=== PATIENT | female | born 1980 | race Caucasian/White ===

== ENCOUNTER 2021-09-19 15:18 | Outpatient (CLI) | payer OTHER, SELFPAY ==
--- NOTE | ~2021-09-19 | MM_ITS ---
EXAMINATION: MM scrn casandra implant BI w jose HISTORY: Screening mammogram; encounter for other preprocedural examination TECHNIQUE: Craniocaudal and mediolateral oblique 3-D tomosynthesis images with implant displacement a nd synthetic 2-D images were generated. Craniocaudal and mediolateral oblique views of the breasts wi thout implant displacement were obtained using full field digital mammography. CAD analysis was submi tted and interpreted. COMPARISON: No prior mammogram is available for comparison at this institution. BREAST PARENCHYMAL COMPOSITION: There are scattered areas of fibroglandular density. FINDINGS: Bilateral ruptured collapsed implants. There is no evidence of suspicious mass, calcificati on, or architectural distortion to suggest malignancy in either breast. There has been no suspicious interval change. IMPRESSION: 1. No mammographic evidence of malignancy. 2. Recommend routine screening mammography in one year. 3. Bilateral ruptured implants BI-RADS Category 1: Negative Reviewed, dictated and finalized at location A. TH CONCIERGE
== END 2021-09-19 15:19 | disposition home or self-care (01) ==
LOC: ANHIMG 15:19
PROVIDERS: PCP Family Medicine; Visit Provider Surgery Plastic and Reconstructive Surgery
DX: Z12.31 Encounter for screening mammogram for malignant neoplasm of breast (principal)
CPT/HCPCS: 77063; 77067

== ENCOUNTER 2021-10-18 00:12 | Day surgery (SDC) | payer OTHER, SELFPAY ==
[2021-10-07 13:18] VITALS: BMI 26.6
--- NOTE | 2021-10-07 13:19 | PC.NURSE ---
Report to the Outpatient Waiting Room, entrance under the green pavilion located off [facility], at time _0830__ on date __10/18/21_. OR Time: _1030__. - You and your visitor will be asked a series of questions to screen for COVID 19 for your protection. - A mask is required within the hospital. Preoperative COVID Testing Requirements: No COVID Test needed if: (proof is required; if not received patient will have Rapid Test prior to entry) - Patient has received COVID Vaccine at least 14 days prior to procedure date or - Patient has positive COVID test result within last 90 days of surgery date. COVID Test needed if above criteria is not met If not COVID vaccinated a COVID test must be conducted within 72 hours of surgery and patient is asked to isolate self from time of testing until procedure. You will go to the [employer] [facility] for your COVID testing. The [employer] [facility] site is located at the corner of [address] [facility]. You will only be called if COVID results are positive and your surgeon may reschedule your elective surgery date. Patients may have clear liquids (water, carbonated beverages, clear teas, apple juice) until 3 hours prior to surgery with a maximum of 20 ounces. - No food from midnight until time of surgery - Infants may have breast milk until 4 hours before surgery, formula 6 hours prior to surgery. - Children will be allowed to drink immediately following surgery. If applicable, please bring a bottle or sippy cup to assist with drinking. Juice, water, soda, and popsicles are readily available. For infants on formula, please bring formula the day of surgery. Pacifiers are allowed. Take the following medications with a SIP of water the morning of surgery: LEXEPRO Medications to discontinue per physician ___NONE Date to take last dose NONE Please no make-up, nail welsh, hairspray, perfume, deodorant, or body powder the day of surgery. No jewelry (including any body piercings) or valuables the day of surgery, leave them at home. Please take a shower or bath the night before, or the morning of, surgery with an antibacterial soap. Wear comfortable, loose fitting clothing. Children are encouraged to wear pajamas. - Jewelry must be removed prior to entering the operating room. Rings and piercings that are not removed may be cut off. - The hospital will not accept responsibility for valuables. - Please leave all valuables, including medications, at home the day of surgery. If you are going home after surgery, a licensed commercial relief driver must drive you home. - NO public transportation without another adult. - We recommend that an adult stay with you for 24 hours following discharge. - We also recommend that you do not drive, make important decision, drink alcoholic beverages, or take any drugs that were not prescribed by your health care provider for at least 24 hours after your discharge time. For Pediatric surgeries, we recommend two adults accompany the child home (only one inside the building at this time). One visitor will be allowed to accompany the patient into the hospital. Patients visitor will be instructed to remain with patient at all times or leave the building. We will allow the visitor to come back to the postoperative area when patient is ready. Follow any additional instructions given to you from your surgeon. Telephone instructions given to _PATIENT and asked if any additional questions and then verbalized understanding. Patient advised to call surgeon office or pre surgery nurse liaison [phone] if any additional questions.
[2021-10-18] VITALS (9 sets, daily range): BP systolic 101–141; BP diastolic 59–74; PULSE 65–97; RESP 12–20; TEMP 36.6–36.7; O2SAT 93–100; BMI 27.9
[2021-10-18 08:58] LABS: Urine Cotinine NEGATIVE
[2021-10-18] MEDS: LACTATED RINGERS 1,000 ML 30 ML IV CONT ×2 (08:58→12:48)
--- NOTE | 2021-10-18 08:59 | SUR.PREOP ---
500ML IVF BOLUS INFUSING PER ORDER
--- NOTE | 2021-10-18 08:59 | WPDANESEPPF ---
Anes - Initial Pre Proc Eval Procedure: Operation Date: 10/18/21 10:30 Proposed Procedures p Bilateral Breast Implant Removal (Ruptured Saline) - Freddy Martines MD s Bilateral Breast Mastopexy - Freddy Martines MD Date/Time: 10/18/21 08:59 Surgeon: Freddy Martines MD Pre Op Diagnosis: hx of breast augmentation,breast ptosis Patient Data Age: 41 Gender: F Height: 1.68 m Weight: 78.5 kg Last Vital Signs Temp 36.7 C 10/18/21 08:45 Pulse 65 10/18/21 08:45 Resp 16 10/18/21 08:45 BP 113/67 10/18/21 08:45 Pulse Ox 100 10/18/21 08:45 Allergies Allergy/AdvReac Type Severity Reaction Status Date / Time prednisone Allergy Unknown Dyspnea / Verified 10/18/21 08:27 SOB Home Medications Medication Instructions Recorded Confirmed Type escitalopram oxalate 10 mg tablet 10 mg PO DAILY #90 tablet 07/21/21 10/18/21 Rx levonorgestrel 20 mcg/24 hours (7 1 insert INTRAUTERINE ONCE 07/21/21 10/07/21 History yrs) 52 mg intrauterine device docusate sodium 100 mg capsule 100 mg PO DAILY #14 cap 10/06/21 10/07/21 Rx ondansetron HCl 4 mg tablet 4 mg PO Q8H #21 tablet 10/06/21 10/07/21 Rx oxycodone-acetaminophen 5 mg-325 1 tablet PO Q6H PRN #30 tablet 10/06/21 10/07/21 Rx mg tablet Laboratory Tests 10/18/21 08:40 Cotinine Negative Patient hx anesthesia problems: none Family hx anesthesia problems: none Results Review: All pre-operative results and documents have been reviewed as part of the pre-operative evaluation. [facility] Past Medical History Medical History Family history of familial hypercholesterolemia Family history of other endocrine, nutritional and metabolic diseases Generalized anxiety disorder Mood swings Surgical History Surgical History History of back surgery Family History Family History Mother Family history of thyroid disease Family history of lupus erythematosus Father Hypertension Social History Social History Social History: Smoking status: Unknown if ever smoked Second hand tobacco smoke exposure: No Alcohol intake: current Drinks per week: 1 Alcohol use details: Twice a month Substance use: never Substance use type: does not use Living arrangements: with family Gender identity (if verbalized by the patient): Female Sexual Orientation (if Verbalized by the Patient): Straight or Heterosexual Anes - Eval Final PreProcedure Day of Procedure 10/18/21 08:59 Patient weight: overweight Heart: regular rate and rhythm Lungs: clear to auscultation Airway: Mallampati scale class II Neurological: alert and oriented Last oral intake: >/= 8 hours ASA classification: II Emergent: no Anesthetic plan: proceed Anesthesia type and monitoring: general LMA and standard monitoring Results Review: All pre-operative results and documents have been reviewed as part of the pre-operative evaluation. Informed Consent: The patient's anesthetic plan and its attendant risks and benefits were discussed with the patient/family/POA. Questions were solicited and answers provided to the satisfaction of the patient/family/POA.
--- NOTE | 2021-10-18 09:54 | WPDHPUPDATE1 ---
History and Physical Update Update Date/Time: 10/18/21 09:54 History and Physical has been reviewed, including an updated exam of the patient. There are NO changes in the patient's condition. Risks, benefits, and alternatives have been discussed and questions answered. Patient agrees to proceed with procedure.
--- NOTE | 2021-10-18 10:10 | SUR.PREOP ---
FEMALE RN IN ROOM WHILE DR CHAO MARKED PT
--- NOTE | 2021-10-18 10:14 | W.PM.PROC2 ---
Procedure Note - Detailed Date of Procedure 10/18/21 Pre-op Diagnosis hx of breast augmentation,breast ptosis Post-op Diagnosis Same Procedure Performed 1. Bilateral breast implant removal 2. Bilateral mastopexy Surgeon Freddy Martines MD Anesthesia General Findings Superior pedicle Invert T Mastopexy Removed implants were textured (no atypical findings) Description of Procedure Preoperatively the risks, benefits, alternatives were discussed in extensive detail. I wanted her to be very realistic risks as well as expectations. All questions were answered to her satisfaction. Consent obtained. She was taken to the operating room placed supine on the operating table. Anesthesia provided by anesthesiology and prepped and draped in standard sterile fashion. Surgical was taken. 1% lidocaine and 0.25% Marcaine with epinephrine was used to provide a field block. I incised vertically and dissection was continued down until the implant was identified. I incised the capsule and the implant was textured. No worrisome features. This was removed. I elevated removed the majority of the anterior capsule which was sent to pathology. I tailor tacked the breast into place. Placed her in a sitting position to verify the markings. Marked out the nipple-areolar complex based on my preoperative planning and intraoperative observations of measurements which were in full agreement. This was at 38 mm. She was then placed supine. I de-epithelialized bilateral superior pedicle. De-epithelialized the inferior portion of the breast and elevated medial and lateral flaps. Copiously irrigated with 3 liters of saline on TUR tubing. I created auto augmentation flap which was based inferiorly and this was sutured to the chest wall with 2-0 PDS. It appeared to have good vascularity with bleeding distal edges of this autoaugmentation flap. I then tailor tacked the breast back into position. I closed along the IMF using 1 barbed suture followed by 3-0 Stratafix in a running subcuticular 4-0 Monocryl. Vertically with 2-0 PDS followed by 3-0 Monocryl in a running subcuticular 4-0 Monocryl. Around the areola with 3-0 Stratafix in a running subcuticular 4-0 Monocryl. Steri-Strips were placed. She was woken taken to PACU without difficulty. All instrument sponge counts were correct at the end of the case. Estimated Blood Loss 75 Drains No Packing No Pathology Yes (Bilateral implant capsules) Complications No immediate complications Condition Stable Disposition PACU
[2021-10-18] MEDS: ceFAZolin 2 GM/D5W 50 ML 2 GM/50 ML BAG IVPB (10:24)
[2021-10-18] MEDS: BUPIVACAINE HCL 0.25% PF 30 ML VIAL INFILTRATE (10:35)
[2021-10-18] MEDS: TRANEXAMIC ACID 1,000MG/ISO100 1,000 MG/100 ML BAG 200 MG IVPB (10:45)
[2021-10-18] MEDS: fentaNYL CITRATE INJ (*CRX) 100 MCG/2 ML VIAL 25 MCG IV PUSH ×4 (12:57→13:38)
[2021-10-18] MEDS: oxyCODONE HCL (*CRX) 5 MG TAB IR PO (14:20)
== END 2021-10-18 14:53 | disposition home or self-care (01) ==
PROVIDERS: PCP Family Medicine; Visit Provider Surgery Plastic and Reconstructive Surgery
PROC: (CPT 19371; principal; 2021-10-18 10:30)
PROC: (CPT 19316; 2021-10-18 10:30)
DX: Z41.1 Encounter for cosmetic surgery (principal); N64.81 Ptosis of breast; F41.1 Generalized anxiety disorder
CPT/HCPCS: 19371; 19316; 80307; 88304; A9270; J0690; J1100; J1170; J2250; J2405; J2704; J3010; J7120

== ENCOUNTER 2022-03-14 16:00 | Outpatient (CLI) | payer OTHER, SELFPAY ==
--- NOTE | ~2022-03-14 | XR_ITS ---
. EXAMINATION: XR lumbar spine 2-3V DATE: 03/14/2022 16:19 INDICATION: Low back pain. TECHNIQUE: 3 views of lumbar spine were obtained. COMPARISON: None. FINDINGS: There is 6 degrees dextrocurvature of lumbar spine. Vertebral body heights are normal. Ther e is moderately decreased disc height at L4-L5 and severely decreased disc height at L5-S1. There is moderate to severe facet joint osteoarthritis in lower lumbar spine. There is an intrauterine device in expected position. IMPRESSION: 1. Severe lower lumbar spondylosis. Reviewed, dictated and finalized at location A.
== END 2022-03-14 16:01 | disposition home or self-care (01) ==
PROVIDERS: PCP Family Medicine; Visit Provider Family Medicine
DX: M54.50 Low back pain, unspecified (principal); M47.816 Spondylosis without myelopathy or radiculopathy, lumbar region
CPT/HCPCS: 72100

== ENCOUNTER 2022-04-09 07:36 | Outpatient (CLI) | payer OTHER, SELFPAY ==
--- NOTE | ~2022-04-09 | MR_ITS ---
EXAMINATION: MR lumbar spine wo con DATE: 04/09/2022 08:08 INDICATION: Low back pain. TECHNIQUE: Magnetic resonance imaging (MRI) of the lumbar spine was performed without intravenous con trast. Sequences included sagittal T2-weighted FSE, sagittal T2-weighted FS FSE, sagittal T1-weighted FSE, and axial T2-weighted FSE. COMPARISON: Lumbar spine radiographs 03/14/2022 FINDINGS: There is 5 degrees dextrocurvature of thoracic lumbar spine. Vertebral body heights are nor mal. There is severely decreased disc height at L4-L5 and L5-S1 with endplate remodeling. The distal spinal cord signal intensity is normal. The conus medullaris is at L1-L2. The following disc levels a re specifically discussed: L1-L2: The disc does not extend beyond the endplate margin. There is mild right and moderate left fac et joint osteoarthritis. There is no neural foraminal stenosis. There is no central canal stenosis. L2-L3: The disc does not extend beyond the endplate margin. There is mild bilateral facet joint osteo arthritis. There is no neural foraminal stenosis. There is no central canal stenosis. L3-L4: The disc does not extend beyond the endplate margin. There is moderate bilateral facet joint o steoarthritis. There is no neural foraminal stenosis. There is no central canal stenosis. L4-L5: The disc is bulging with superimposed right subarticular zone extrusion with mass effect on ri ght L5 nerve root in right lateral recess. There is severe bilateral facet joint osteoarthritis. Ther e is mild bilateral neural foraminal stenosis. There is mild central canal stenosis. Is moderate sten osis of right lateral recess. L5-S1: The disc is bulging and has an annular fissure. There is moderate bilateral facet joint osteoa rthritis. There is mild bilateral neural foraminal stenosis. There is mild central canal stenosis. IMPRESSION: 1. Severe lower lumbar spondylosis. Of note, an extrusion at L4-L5 exerts mass effect on right L5 ner ve root. Reviewed, dictated and finalized at location A. IMPRESSION: 1. Severe lower lumbar spondylosis. Of note, an extrusion at L4-L5 exerts mass effect on right L5 nerve root.
== END 2022-04-09 07:37 | disposition home or self-care (01) ==
PROVIDERS: PCP Family Medicine; Visit Provider Family Medicine
DX: M47.27 Other spondylosis with radiculopathy, lumbosacral region (principal)
CPT/HCPCS: 72148

== ENCOUNTER → 2022-06-19 08:39 | Outpatient (CLI) | payer OTHER, SELFPAY ==
--- NOTE | ~2022-06-19 | MR_ITS ---
. EXAMINATION: MR lumbar spine wo/w con DATE: 06/19/2022 09:21 INDICATION: Lumbar disc herniation. Low back pain. Bilateral leg pain. TECHNIQUE: Magnetic resonance imaging (MRI) of the lumbar spine was performed without and with 15 mL MultiHance intravenous contrast. COMPARISON: Lumbar spine MRI 04/09/2022 FINDINGS: There is 7 degrees dextrocurvature of lumbar spine. Vertebral body heights are normal. Ther e is moderately decreased disc height at L4-L5 and severely decreased disc height at L5-S1. The dista l spinal cord signal intensity is normal. The conus medullaris is at L1. The following disc levels ar e specifically discussed: L1-L2: The disc does not extend beyond the endplate margin. There is mild left facet joint osteoarthr itis. There is no neural foraminal stenosis. There is no central canal stenosis. L2-L3: The disc does not extend beyond the endplate margin. There is mild bilateral facet joint osteo arthritis. There is no neural foraminal stenosis. There is no central canal stenosis. L3-L4: The disc does not extend beyond the endplate margin. There is no facet joint osteoarthritis. T here is no neural foraminal stenosis. There is no central canal stenosis. L4-L5: The disc is bulging and has an annular fissure. There is moderate bilateral facet joint osteoa rthritis. There is moderate right and mild left neural foraminal stenosis. There is mild central karen l stenosis. L5-S1: The disc is bulging and has an annular fissure. There is enhancing granulation tissue in right lateral recess. There is mild bilateral facet joint osteoarthritis. There is moderate right and mild left neural foraminal stenosis. There is mild central canal stenosis. IMPRESSION: 1. Severe lower lumbar spondylosis. Reviewed, dictated and finalized at location A. MAKER
== END ==
PROVIDERS: PCP Family Medicine; Visit Provider Neurological Surgery
DX: M51.26 Other intervertebral disc displacement, lumbar region (principal); M47.896 Other spondylosis, lumbar region
CPT/HCPCS: 72158; A9577

== ENCOUNTER 2022-09-20 15:24 | Outpatient (CLI) | payer OTHER, SELFPAY ==
--- NOTE | ~2022-09-20 | MM_ITS ---
EXAMINATION: MM screening casandra BI w jose HISTORY: Screening mammogram TECHNIQUE: Craniocaudal and mediolateral oblique 3-D tomosynthesis images were obtained and synthetic 2-D images were generated. CAD analysis was submitted and interpreted. COMPARISON: September 19, 2021 bilateral implant screening mammogram BREAST PARENCHYMAL COMPOSITION: The breasts are heterogeneously dense, which may obscure small masses . FINDINGS: There is interval removal of bilateral ruptured implants since September 19, 2021. Occasional bilateral benign calcifications. There is no evidence of suspicious mass, calcification, o r architectural distortion to suggest malignancy in either breast. There has been no suspicious inter dominga change. IMPRESSION: 1. No mammographic evidence of malignancy. 2. Recommend routine screening mammography in one year. BI-RADS Category 2: Benign finding(s). Reviewed, dictated and finalized at location A. [employer]INE [employer] UP ME[employer]IC
== END 2022-09-20 15:25 | disposition home or self-care (01) ==
LOC: ANHIMG 15:25
PROVIDERS: PCP Family Medicine; Visit Provider Nurse Practitioner Gerontology
DX: Z12.31 Encounter for screening mammogram for malignant neoplasm of breast (principal)
CPT/HCPCS: 77063; 77067

== ENCOUNTER 2024-01-02 08:47 | Outpatient (CLI) | payer BC, SELFPAY ==
--- NOTE | ~2024-01-02 | MM_ITS ---
EXAMINATION: MM screening casandra BI w jose HISTORY: Screening TECHNIQUE: Craniocaudal and mediolateral oblique 3-D tomosynthesis images were obtained and synthetic 2-D images were generated. CAD analysis was submitted and interpreted. COMPARISON: 09/20/2022 BREAST PARENCHYMAL COMPOSITION: Dense: The breasts are heterogeneously dense, which may obscure small masses FINDINGS: There is no evidence of suspicious mass, calcification, or architectural distortion to sugg est malignancy in either breast. There has been no suspicious interval change. IMPRESSION: 1. No mammographic evidence of malignancy. 2. Recommend routine screening mammography in one year. BI-RADS Category 1: Negative Reviewed, dictated and finalized at location B.
== END 2024-01-02 08:48 | disposition home or self-care (01) ==
LOC: ANHIMG 08:50
PROVIDERS: PCP Family Medicine; Visit Provider Family Medicine
DX: Z12.31 Encounter for screening mammogram for malignant neoplasm of breast (principal)
CPT/HCPCS: 77063; 77067